=== PATIENT | male | born 1990 | race Caucasian/White ===

== ENCOUNTER 2017-09-28 16:47 | Emergency (ER) | payer SELFPAY ==
[~2017-09-28] VITALS: Ht 190.5 cm; Wt 128.8 kg
[~2017-09-28 16:47] MED LIST: ACETAMINOPHEN/O1 TA3 PO; ATI1 PO; DONLUD PO; FLA500 PO; LEVOFLOXACIN500 M1 PO
[2017-09-28 16:50] VITALS: Ht 190.5 cm; Wt 128.8 kg
[2017-09-28 17:50] VITALS: BP 145/83
== END 2017-09-28 17:50 | disposition home or self-care (01) ==
LOC: ED 16:47
DX: L98.9 Disorder of the skin and subcutaneous tissue, unspecified (principal)
CPT/HCPCS: Q0163

== ENCOUNTER 2017-10-10 10:46 | Emergency (ER) | payer SELFPAY ==
[~2017-10-10] VITALS: Ht 193 cm; Wt 129.4 kg
[2017-10-10 11:04] VITALS: Ht 193 cm; Wt 129.4 kg
[2017-10-10 13:34] VITALS: BP 132/72
== END 2017-10-10 13:50 | disposition home or self-care (01) ==
LOC: ED 10:46
DX: L73.8 Other specified follicular disorders (principal); B95.62 Methicillin resistant Staphylococcus aureus infection as the cause of diseases classified elsewhere; Z90.49 Acquired absence of other specified parts of digestive tract